=== PATIENT | male | born 1960 | race Caucasian/White ===

== ENCOUNTER 2018-08-01 15:31 | Outpatient (CLI) | payer OTHER, SELFPAY ==
[2018-08-06 12:27] LABS: Cotinine 8.3 ng/mL (<3.0); Nicotine <3.0 ng/mL (<3.0)
== END 2018-08-01 15:51 ==
PROVIDERS: PCP Internal Medicine; Visit Provider Internal Medicine Nephrology
DX: Z76.82 Awaiting organ transplant status (principal); N18.6 End stage renal disease; Z99.2 Dependence on renal dialysis
CPT/HCPCS: 36415; 80323